=== PATIENT | male | born 1960 | race American Indian/Alaskan Native ===

== ENCOUNTER 2021-08-23 07:25 | Emergency (ER) | payer SELFPAY ==
--- NOTE | 2021-08-23 07:41 | Emergency Department Report ---
ED CPR HPI - General Stated Complaint: CARDIAC ARRESET Time Seen by Provider: 08/23/21 07:40 Source: old records reviewed (No previous medical record) - History of Present Illness Initial Comments: 60-year-old male with unknown past medical history presents from work with cardiopulmonary arrest. EMS reports they received a calL at 6:25 AM for patient with respiratory distress. Patient had frothy sputum and shortness of breath upon EMS arrival then went pulses and unresponsive at 6:37 AM. Initial rhythm asystole. Patient was intubated 7.0 ET tube and during resuscitation efforts received epinephrine x3, a 200 J defibrillation for V. fib at 7:15 AM and a 300 J defibrillation at 7:19 AM. Patient presents with asystole upon arrival.. Accu-Chek prior to arrival 118. - Related Data Allergies Allergy/AdvReac Type Severity Reaction Status Date / Time Unable to Assess Allergy Unverified 08/23/21 08:11 ED Review of Systems ROS: Stated complaint: CARDIAC ARRESET Other details as noted in HPI Comment: All other systems reviewed and negative ED Physical Exam - Other Other exam information: General: Unresponsive Head: Atraumatic Eyes: Pupils fixed and dilated ENT: Orally intubated 7.0 ETT Neck: Normal appearance no Chest: Equal breath sounds with bagging, positive CO2 tactile color change with excellent CV: Pulseless Abdomen: Firm mildly distended Back: Normal inspection Extremity: No spontaneous movement noted for Neuro: GCS equals Psych: Unresponsive Skin: Warm to touch ED Medical Decision Making - Medical Decision Making 60-year-old male presents with cardiopulmonary arrest. After extensive resuscitation efforts for proxy 1 hour patient remains in asystole, pulseless, pupils fixed and dilated. Time of 7:31 AM. Patient's son and other family informed of patient's Critical Care Time: No Critical care attestation.: If time is entered above; I have spent that time in minutes in the direct care of this critically ill patient, excluding procedure time. ED Disposition Clinical Impression: Cardiopulmonary arrest Disposition: 20 Is pt being admited?: No Condition: Stable Time of Disposition: 08:00
[2021-08-23] MEDS ORDERED: CALCIUM CHLORIDE 1,000 MG/10 ML SYRINGE IV ONE (13:27)
[2021-08-23] MEDS ORDERED: EPINEPHrine 1 MG/10 ML SYRINGE ONE (13:27)
== END 2021-08-23 13:00 ==
LOC: ED 07:25
DX: I46.9 Cardiac arrest, cause unspecified (principal)
CPT/HCPCS: 92950; 99285; J0171; J3490